=== PATIENT | female | born 1985 | race Caucasian/White ===

== ENCOUNTER 2017-04-25 18:03 | Emergency (ER) | payer BC ==
[~2017-04-25] VITALS: Ht 160 cm; Wt 97.5 kg
[~2017-04-25 18:03] MED LIST: FLONASE 0.05%50 MCG NASAL; NAPROSYN500 MG PO; PAXIL10 MG PO; ZYRTEC10 M2 PO
[2017-04-25] MEDS ORDERED: PAXIL10 MG PO (18:24)
[2017-04-25] MEDS ORDERED: SENOKOT-S1 TA1 PO (19:20)
[2017-04-25] MEDS ORDERED: NAPROSYN500 MG PO (19:20)
[2017-04-25] MEDS ORDERED: NORCO 5-325 TA1 EACH PO (19:20)
[2017-04-25 19:26] VITALS: BP 111/68
== END 2017-04-25 19:27 ==
LOC: ER 18:03
DX: S30.0XXA Contusion of lower back and pelvis, initial encounter (principal); S30.1XXA Contusion of abdominal wall, initial encounter; V03.90XA Pedestrian on foot injured in collision with car, pick-up truck or van, unspecified whether traffic or nontraffic accident, initial encounter; Y93.89 Activity, other specified; Y92.89 Other specified places as the place of occurrence of the external cause; Y99.8 Other external cause status; Z88.8 Allergy status to other drugs, medicaments and biological substances